=== PATIENT | male | born 1995 | race Caucasian/White ===

== ENCOUNTER 2017-01-23 19:08 | Emergency (ER) | payer MEDICAID ==
[2017-01-23] MEDS ORDERED: HYDROCODONE/ACETAMINOPHEN 5-325 MG TABLET PO ONE (20:17)
--- NOTE | 2017-01-23 20:18 | ER Document Report ---
HPI - HPI Patient complains to provider of: Sore throat, body aches Onset: Other - 2 days Onset/Duration: Persistent Quality of pain: Achy Pain Level: 3 Context: Patient presents complaining of sore throat, body aches, low back pain that started 2 days ago. Patient reports low-grade fever at home. Patient states he developed a mild cough today. Associated Symptoms: Body/muscle aches, Nonproductive cough, Fever, Rhinnorhea, Sore throat. denies: Vomiting Exacerbated by: Denies Relieved by: Denies Similar symptoms previously: Yes Recently seen / treated by doctor: No - ROS ROS below otherwise negative: Yes Systems Reviewed and Negative: Yes All other systems reviewed and negative - CONSTITUTIONAL Constitutional: REPORTS: Fever - EENT EENT: REPORTS: Sore Throat, Congestion - RESPIRATORY Respiratory: REPORTS: Coughing. DENIES: Trouble Breathing - GASTROINTESTINAL Gastrointestinal: DENIES: Abdominal Pain, Nausea, Patient vomiting - URINARY Urinary: DENIES: Dysuria - MUSCULOSKELETAL Musculoskeletal: REPORTS: Back Pain. DENIES: Extremity pain - DERM Skin Color: Normal Skin Problems: None Past Medical History - General Information source: Patient - Social History Smoking Status: Never Smoker Frequency of alcohol use: None Drug Abuse: None Occupation: retail Family History: Reviewed & Not Pertinent Patient has suicidal ideation: No Patient has homicidal ideation: No - Medical History Medical History: Negative Renal/ Medical History: Denies: Hx Peritoneal Dialysis Surgical Hx: Negative - Immunizations Immunizations up to date: Yes Hx Diphtheria, Pertussis, Tetanus Vaccination: Yes Vertical Provider Document - CONSTITUTIONAL Agree With Documented VS: Yes Exam Limitations: No Limitations General Appearance: WD/WN, No Apparent Distress - INFECTION CONTROL TRAVEL OUTSIDE OF THE [place] IN LAST 30 DAYS: No - HEENT HEENT: Atraumatic, Normocephalic, Pharyngeal Tenderness, Pharyngeal Erythema. negative: Pharyngeal Exudate, Tympanic Membrane Red, Tympanic Membrane Bulging - NECK Neck: Normal Inspection, Supple. negative: Lymphadenopathy-Left, Lymphadenopathy-Right - RESPIRATORY Respiratory: Breath Sounds Normal, No Respiratory Distress O2 Sat by Pulse Oximetry: 98 - CARDIOVASCULAR Cardiovascular: Regular Rate, Regular Rhythm, No Murmur - GI/ABDOMEN Gastrointestinal: Abdomen Soft, Abdomen Non-Tender, No Organomegaly - BACK Back: Abnormal Inspection - Lumbar paraspinal tenderness. negative: CVA Tenderness-Right, CVA Tenderness-Left - MUSCULOSKELETAL/EXTREMETIES Musculoskeletal/Extremeties: SKYLAR GE - NEURO Level of Consciousness: Awake, Alert, Appropriate Motor/Sensory: No Motor Deficit, No Sensory Deficit - DERM Integumentary: Warm, Dry, No Rash Course - Vital Signs Vital signs: Temp Pulse Resp BP Pulse Ox 98.6 F 98 H 16 118/66 98 01/23/17 19:22 01/23/17 19:22 01/23/17 19:22 01/23/17 19:22 01/23/17 19:22 - Laboratory Laboratory results interpreted by me: 01/23/17 21:07 Labs- Entire Visit 01/23/17 01/23/17 20:25 20:25 Urine Color YELLOW Urine Appearance SLIGHTLY-CLOUDY Urine pH 7.0 Ur Specific [place] 1.029 Urine Protein NEGATIVE Urine Glucose (UA) NEGATIVE Urine Ketones NEGATIVE Urine Blood NEGATIVE Urine Nitrite NEGATIVE Urine Bilirubin NEGATIVE Urine Urobilinogen NEGATIVE Ur Leukocyte Esterase NEGATIVE Urine WBC (Auto) 2 Urine RBC (Auto) 20 Urine Bacteria (Auto) TRACE Squamous Epi Cells Auto <1 Amorphous Sediment Auto TRACE Urine Mucus (Auto) MOD Urine Ascorbic Acid NEGATIVE Group A Strep Rapid NEGATIVE Discharge - Discharge Clinical Impression: Sore throat, Myalgia Condition: Stable Disposition: HOME, SELF-CARE Instructions: Oral Narcotic Medication ([facility]), Sore Throat ([facility]) Additional Instructions: Return immediately for any new or worsening symptoms Followup with your primary care provider, call tomorrow to make a followup appointment UPPER RESPIRATORY ILLNESS: You have a viral infection of the respiratory passages -- a "cold." This common infection causes nasal congestion, drainage, and often sore throat and cough. It is highly contagious. The disease usually lasts about 10 to 14 days. There is no "cure" for the viral infection -- it must run its course. If there is a complication, such as bacterial infection in the nose, sinuses, middle ear, or bronchial tubes, antibiotics may be required. The antibiotics won't affect the virus. Drink plenty of fluids. A humidifier may help. An expectorant medication or decongestant may make you more comfortable. Use acetaminophen or ibuprofen for fever or aches. See the doctor if fever persists over two days, if there is any significant worsening of your symptoms, or if you simply fail to improve as expected. USE OF ACETAMINOPHEN (Tylenol): Acetaminophen may be taken for pain relief or fever control. It's much safer than aspirin, offering a wider range of "safe" dosages. It is safe during . Some brand names are Tylenol, Panadol, Datril, Anacin 3, Tempra, and Liquiprin. Acetaminophen can be repeated every four hours. The following are maximum recommended dosages: >89 pounds or adults 650 mg to 900 mg Acetaminophen can be repeated every four hours. Maximum dose not to exceed 4000 mg a day. VIRAL SYNDROME: The physician has diagnosed a viral infection. Viruses not only cause "colds," but can cause many different symptoms including generalized aching, fever, headache, cough, diarrhea, nausea, vomiting, and fatigue. The treatment, for the most part, is simply relief of symptoms. This means that antibiotics are usually not given. Rest, fluids, pain medications and, occasionally, medication for the specific symptoms that are most bothersome will be prescribed. Use good handwashing to avoid passing the virus to others. Shared toys should be cleaned with disinfectant. Clean the toilets, sinks, and counter surfaces in bathrooms. Launder clothing in hot water. Contact the physician if you develop any new or unusual symptoms such as severe headache, stiff neck, high fever, chest pain, productive cough, or shortness of breath. You should be rechecked if you don't see marked improvement within seven to 10 days. FOLLOW-UP CARE: If you have been referred to a physician for follow-up care, call the physician s office for an appointment as you were instructed or within the next two days. If you experience worsening or a significant change in your symptoms, notify the physician immediately or return to the Emergency Department at any time for re-evaluation. Prescriptions: Hydrocodone/Acetaminophen [[place] 5-325 Tablet] 1 each PO Q4 PRN #15 tablet PRN Reason: Naproxen [Naprosyn 250 Nmg Tablet] 1 tab PO BID #14 tablet Forms: Return to Work [facility] - Follow up tomorrow
[2017-01-23 20:51] LABS: AMORPHOUS SEDIMENT,URINE TRACE /HPF; APPEARANCE,URINE SLIGHTLY-CLOUDY; BILIRUBIN,URINE NEGATIVE (NEGATIVE); GLUCOSE, URINE NEGATIVE (NEGATIVE); KETONES,URINE NEGATIVE (NEGATIVE); LEUKOCYTE ESTERASE,URINE NEGATIVE (NEGATIVE); NITRITE,URINE NEGATIVE (NEGATIVE); PROTEIN,URINE NEGATIVE (NEGATIVE); URINE SPECIFIC GRAVITY 1.029; UROBILINOGEN,URINE NEGATIVE mg/dL (<2.0)
[2017-01-23 21:51] VITALS: BP 110/63
== END 2017-01-23 21:51 | disposition home or self-care (01) ==
LOC: ER 19:08
DX: J02.9 Acute pharyngitis, unspecified (principal); M79.1 Myalgia; M54.5 Low back pain; R05 Cough; R50.9 Fever, unspecified; J34.89 Other specified disorders of nose and nasal sinuses
CPT/HCPCS: 81001; 87070; 87880; 99283

== ENCOUNTER 2017-09-06 21:56 | Emergency (ER) | payer SELFPAY ==
--- NOTE | 2017-09-07 00:37 | ER Document Report ---
ED General - General Chief Complaint: Toothache Stated Complaint: TOOTHACHE Time Seen by Provider: 09/06/17 23:24 Notes: Patient is a 21-year-old male without past medical history who presents with several days of progressively worsening throbbing, severe, aching pain to his left upper teeth as well as 2-3 days of left-sided facial swelling and erythema. Patient reports that the erythema and swelling has been progressively worse since onset. He denies any history of similar symptoms in the past. He reports that he was told that he had several significant dental infections but never followed up with a dentist to complete definitive management of this condition. He denies anything improves or worsens his symptoms. He has been trying ibuprofen without relief. He has not seen his primary doctor regarding today's concerns. He denies any fever, headache, neck pain, weakness, numbness, altered mental status. No facial trauma. TRAVEL OUTSIDE OF THE [place] IN LAST 30 DAYS: No - Related Data Allergies/Adverse Reactions: No Known Allergies Allergy (Verified 09/07/17 02:21) Past Medical History - General Information source: Patient - Social History Smoking Status: Never Smoker Frequency of alcohol use: None Drug Abuse: None Lives with: Parents Family History: Reviewed & Not Pertinent Renal/ Medical History: Denies: Hx Peritoneal Dialysis - Immunizations Immunizations up to date: Yes Hx Diphtheria, Pertussis, Tetanus Vaccination: Yes Review of Systems - Review of Systems Notes: Constitutional: Negative for fever. HENT: Positive for dental pain Eyes: Negative for visual changes. Cardiovascular: Negative for chest pain. Respiratory: Negative for shortness of breath. Gastrointestinal: Negative for abdominal pain, vomiting or diarrhea. Genitourinary: Negative for dysuria. Musculoskeletal: Negative for back pain. Skin: Positive for rash. Neurological: Negative for headaches, weakness or numbness. 10 point ROS negative except as marked above and in HPI. Physical Exam - Vital signs Vitals: Temp Pulse BP Pulse Ox 98.8 F 95 H 120/73 100 09/06/17 22:29 09/06/17 22:29 09/06/17 22:29 09/06/17 22:29 Interpretation: Normal Notes: PHYSICAL EXAMINATION: GENERAL: Well-appearing, well-nourished and in no acute distress. HEAD: Atraumatic, normocephalic. EYES: Pupils equal round and reactive to light, extraocular movements intact, sclera anicteric, conjunctiva are normal. ENT: nares patent, oropharynx clear without exudates. Several areas of dental caries in the left lateral incisor and molars. moist mucous membranes. NECK: Normal range of motion, supple without lymphadenopathy LUNGS: Breath sounds clear to auscultation bilaterally and equal. No wheezes rales or rhonchi. HEART: Regular rate and rhythm without murmurs ABDOMEN: Soft, nontender, normoactive bowel sounds. No guarding, no rebound. No masses appreciated. EXTREMITIES: Normal range of motion, no pitting or edema. No cyanosis. NEUROLOGICAL: No focal neurological deficits. Moves all extremities spontaneously and on command. PSYCH: Normal mood, normal affect. SKIN: Warm, Dry, normal turgor, the left side of the face has erythema over the maxillary sinus extending over to the left forehead and the left side of the nose. There is an area of swelling without fluctuance to the left maxillary sinus. Course - Re-evaluation Re-evalutation: 09/07/17 00:31 Patient presents with mild left-sided facial swelling and erythema in the setting of multiple severe dental caries on the left upper molars and and lateral incisor. There is an apparent cellulitis of the left side of his face over the maxillary sinus and forehead. Patient does not have any evidence of airway compromise. No difficulty swallowing. Vitals otherwise within normal limits. He is in no distress. I have emphasized with the patient at length the critical importance of follow-up with oral surgery for definitive management and the very real possibility of him having progressively worsening complications if he does not have the definitive treatment performed. 09/07/17 01:18 Discharge has been canceled as the patient has spiked a fever become tachycardic. The symptoms and signs were not present at time of initial presentation. Will therefore proceed with CT of the face and head to further evaluate for any evidence of a facial abscess in the context of not meeting sepsis criteria. Will also obtain labs and provide IV fluids, antipyretics, and IV antibiotics. 09/07/17 02:38 CT of the face does not show any significant fluid collection or anything to suggest a facial abscess. Edema is noted consistent with a cellulitis which is noted on examination. Will discharge on clindamycin for coverage of both dental infection as well as possible strep cellulitis. At this time will discharge with return precautions and follow-up recommendations. Verbal discharge instructions given a the bedside and opportunity for questions given. Medication warnings reviewed. Patient is in agreement with this plan and has verbalized understanding of return precautions and the need for primary care follow-up in the next 24-72 hours. - Vital Signs Vital signs: Temp Pulse Resp BP Pulse Ox 99 F 99 H 20 111/54 L 98 09/07/17 02:34 09/07/17 02:34 09/07/17 02:34 09/07/17 02:34 09/07/17 02:34 - Laboratory Result Diagrams: 09/07/17 01:43 09/07/17 01:43 Laboratory results interpreted by me: 09/07/17 01:43 WBC 11.8 H Lymphocytes % 11.6 L Absolute Neutrophils 8.9 H - Diagnostic Test Radiology reviewed: Image reviewed, Reports reviewed Radiology results interpreted by me: 09/07/17 02:39 CT head: No acute intracranial bleed Discharge - Discharge Clinical Impression: Dental infection, Facial swelling, Facial cellulitis Condition: Good Disposition: HOME, SELF-CARE Additional Instructions: You have been seen for dental pain. It is very important that you follow-up with a dentist for definitive care. Please take antibiotics that were prescribed as directed please return if you develop fever greater than 101, worsening swelling in your face, vomiting, difficulty breathing or swallowing, or any other symptoms that are concerning to you. For pain you should take ibuprofen 600 mg every 6 hours as needed. Prescriptions: Clindamycin HCl 300 mg PO TID #30 capsule Forms: Return to Work
[2017-09-07] MEDS ORDERED: AMOXICILLIN TR/POT CLAVULANATE 500-125 MG TAB PO ONE (00:40)
[2017-09-07] MEDS ORDERED: HYDROCODONE/ACETAMINOPHEN 5-325 MG (6 TAB/ER DISP) PO PRN (00:40)
[2017-09-07] MEDS ORDERED: NORMAL SALINE 1000 ML 1,000 ML IV ONE (01:17)
[2017-09-07] MEDS ORDERED: ACETAMINOPHEN 325 MG TABLET PO ONE (01:18)
[2017-09-07 01:58] LABS: ABSOLUTE BASOPHILS # (AUTO) 0.1 10^3/uL (0.0-0.2); ABSOLUTE LYMPHOCYTES (AUTO) 1.4 10^3/uL (0.5-4.7); ABSOLUTE MONOCYTES (AUTO) 1.4 10^3/uL (0.1-1.4); ABSOLUTE NEUT (AUTO) 8.9 10^3/uL (1.7-8.2); BASOPHILS % (AUTO) 0.4 % (0-2); EOSINOPHILS % (AUTO) 0.3 % (0-6); HEMATOCRIT 42.2 % (37.9-51.0); HEMOGLOBIN 14.4 g/dL (13.5-17.0); LYMPHOCYTES % (AUTO) 11.6 % (13-45); MEAN CORPUSCULAR HEMOGLOBIN 29.6 pg (27.0-33.4); MEAN CORPUSCULAR HGB CONC 34.1 g/dL (32.0-36.0); MEAN CORPUSCULAR VOLUME 87 fl (80-97); MONOCYTES % (AUTO) 11.9 % (3-13); PLATELET COUNT 235 10^3/uL (150-450); RED BLOOD COUNT 4.85 10^6/uL (4.35-5.55); RED CELL DISTRIBUTION WIDTH 12.9 % (11.5-14.0); SEGMENTED NEUTROPHILS % (AUTO) 75.8 % (42-78); TOTAL CELLS COUNTED % (AUTO) 100 %; WHITE BLOOD COUNT 11.8 10^3/uL (4.0-10.5)
[2017-09-07 02:14] LABS: ANION GAP 14 (5-19); BLOOD UREA NITROGEN 7 mg/dL (7-20); CALCIUM 9.8 mg/dL (8.4-10.2); CARBON DIOXIDE 25 mmol/L (22-30); CHLORIDE 104 mmol/L (98-107); GLUCOSE 95 mg/dL (75-110); POTASSIUM 4.1 mmol/L (3.6-5.0); SODIUM 142.7 mmol/L (137-145)
--- NOTE | 2017-09-07 02:18 | RADIOLOGY REPORT (SQ) ---
EXAM DESCRIPTION: CT HEAD WITHOUT CLINICAL HISTORY: facial swelling, fever COMPARISON: None available TECHNIQUE: Axial CT of the head obtained from the skull apex to the skull base without contrast. FINDINGS: No acute intracranial hemorrhage identified. No mass, mass effect, shift of the midline, abnormal extra-axial fluid collection or CT evidence of acute ischemic change identified. The ventricular system is unremarkable. No acute abnormalities of the supratentorial white matter, basal ganglia, cerebellum, or brainstem. The visualized paranasal sinuses and the mastoids are clear. No skull fracture identified. Visualized orbits and globes are unremarkable. Swelling in the left facial soft tissues. Please see facial bone CT for further details. DLP:1162.97 mGy-cm IMPRESSION: 1. No acute intracranial abnormality identified. This exam was performed according to our departmental dose-optimization program, which includes automated exposure control, adjustment of the mA and/or kV according to patient size and/or use of iterative reconstruction technique.
--- NOTE | 2017-09-07 02:22 | RADIOLOGY REPORT (SQ) ---
EXAM DESCRIPTION: CT FACIAL AREA WITHOUT CLINICAL HISTORY: facial swelling, fever COMPARISON: None available TECHNIQUE: Axial CT of the facial bones obtained without contrast. FINDINGS: Orbital floors and najera are intact. No fracture identified. Visualized globes and intraconal contents are unremarkable. Minimal mucosal thickening of the left maxillary sinus. The frontal sinuses, ethmoid air cells, sphenoid sinuses, and right maxillary sinuses are well aerated. Mastoid air cells are well aerated. No fracture of the maxillary antral najera. No nasal bone fracture. Nasal septum is midline. No fracture of the zygomatic processes or pterygoid plates. The visualized mandible is intact without evidence of fracture. No mandibular condylar dislocation. In the left maxillary region there is edema without well-circumscribed fluid collections definitely identified. No corresponding left maxillary hard palate or dental lucency to suggest cavity formation. No lymphadenopathy identified. Visualized submandibular and parotid glands are unremarkable. No abnormalities of the tongue base. DLP: 604.14 mGy-cm IMPRESSION: 1. Swelling in the left para maxillary subcutaneous soft tissues of the face. No well-circumscribed fluid collection identified. These findings could be seen with cellulitis. No corresponding dental abnormality at this location by CT criteria. This exam was performed according to our departmental dose-optimization program, which includes automated exposure control, adjustment of the mA and/or kV according to patient size and/or use of iterative reconstruction technique.
[2017-09-07 02:35] VITALS: BP 111/54
[2017-09-07] MEDS ORDERED: CEFTRIAXONE 1 GM/D5W RTU 1 GM/50 ML RTUPB IV ONE (02:38)
[2017-09-07] MEDS ORDERED: LIDOCAINE 1% INJ-PF (10 MG/ML) 30 ML SDV ONE (03:48)
== END 2017-09-07 02:54 | disposition home or self-care (01) ==
LOC: ER 21:56
DX: K04.7 Periapical abscess without sinus (principal); L03.211 Cellulitis of face; K02.9 Dental caries, unspecified
CPT/HCPCS: 99284; 96372; 96360; 36415; 85025; 80048; 70450; 70486; J3490; J7030; J0696

== ENCOUNTER 2018-01-23 09:22 | Emergency (ER) | payer SELFPAY ==
[2018-01-23] MEDS ORDERED: IPRATROPIUM/ALBUTEROL 0.5-2.5 MG/3 ML AMPUL NEB ONE (09:56)
[2018-01-23] MEDS ORDERED: ACETAMINOPHEN 325 MG TABLET PO ONE (09:56)
[2018-01-23] MEDS ORDERED: RINGERS SOLUTION,LACTATED 1,000 ML IV ONE ×2 (09:57→11:28)
--- NOTE | 2018-01-23 09:57 | ER Document Report ---
ED Medical Screen (RME) - General Chief Complaint: Abdominal Pain Stated Complaint: FEVER Time Seen by Provider: 01/23/18 09:52 Notes: RAPID MEDICAL EVALUATION DISCLOSURE I have seen this patient as part of a Rapid Medical Evaluation and, if applicable, placed any initially appropriate orders. The patient will be seen and fully evaluated, including a full history and physical exam, by a provider ( in Main ED or Fast Track) when a room becomes available. 22-year-old male here with complaints of sore throat cough ear pain body aches vomiting and fever to 102 Fahrenheit over the past few days. He reports he does not have a history of asthma. He has been using Tylenol/ibuprofen for the symptoms. No known sick contacts. EXAM Erythematous oropharynx with tonsillar swelling/exudates Mild end expiratory wheezes with normal aeration Tachycardic TRAVEL OUTSIDE OF THE [place] IN LAST 30 DAYS: No - Related Data Allergies/Adverse Reactions: No Known Allergies Allergy (Verified 09/07/17 02:21) Past Medical History Renal/ Medical History: Denies: Hx Peritoneal Dialysis - Immunizations Immunizations up to date: Yes Hx Diphtheria, Pertussis, Tetanus Vaccination: Yes Physical Exam - Vital signs Vitals: Temp Pulse Resp BP Pulse Ox 99.9 F 120 H 20 112/52 L 96 01/23/18 09:27 01/23/18 09:27 01/23/18 09:27 01/23/18 09:27 01/23/18 09:27 Course - Vital Signs Vital signs: Temp Pulse Resp BP Pulse Ox 99.9 F 120 H 20 112/52 L 96 01/23/18 09:27 01/23/18 09:27 01/23/18 09:27 01/23/18 09:27 01/23/18 09:27
--- NOTE | 2018-01-23 10:26 | RADIOLOGY REPORT (SQ) ---
EXAM DESCRIPTION: CHEST 2 VIEWS COMPLETED DATE/TIME: 01/23/2018 10:17 am REASON FOR STUDY: wheezing cough COMPARISON: 10/26/2014. EXAM PARAMETERS: NUMBER OF VIEWS: two views TECHNIQUE: Digital Frontal and Lateral radiographic views of the chest acquired. RADIATION DOSE: NA LIMITATIONS: none FINDINGS: LUNGS AND PLEURA: No opacities, masses or pneumothorax. No pleural effusion. MEDIASTINUM AND HILAR STRUCTURES: No masses or contour abnormalities. HEART AND VASCULAR STRUCTURES: Heart normal size. No evidence for failure. BONES: No acute findings. HARDWARE: None in the chest. OTHER: No other significant finding. IMPRESSION: NO ACUTE RADIOGRAPHIC FINDING IN THE CHEST. TECHNICAL DOCUMENTATION: JOB ID: [id number] [employer]- All Rights Reserved Reading location - IP/workstation name: [email or web address]
--- NOTE | 2018-01-23 11:36 | ER Document Report ---
ED General - General Chief Complaint: Abdominal Pain Stated Complaint: FEVER Time Seen by Provider: 01/23/18 09:52 Notes: Patient says he has been ill since Friday. Has had throat pain and his ears hurt when he swallows and a generalized headache. Vomited once yesterday. Says he is taking in fluids and making urine. No change in bowel movements. No urinary tract symptoms. Has had fever during these 3 days. No one else at home has been ill. No exposures to anyone elsewhere in who has been sick. Only minor cough. TRAVEL OUTSIDE OF THE [place] IN LAST 30 DAYS: No - Related Data Allergies/Adverse Reactions: No Known Allergies Allergy (Verified 09/07/17 02:21) Past Medical History - Social History Smoking Status: Current Every Day Smoker Chew tobacco use (# tins/day): No Frequency of alcohol use: Rare Drug Abuse: None Family History: Reviewed & Not Pertinent Patient has suicidal ideation: No Patient has homicidal ideation: No - Immunizations Immunizations up to date: Yes Hx Diphtheria, Pertussis, Tetanus Vaccination: Yes Review of Systems - Review of Systems Notes: REVIEW OF SYSTEMS: CONSTITUTIONAL : Fever as described in HPI.. EENT: Sore throat, see HPI. Denies eye, ear, nose or mouth pain or other symptoms. CARDIOVASCULAR: Denies chest pain. RESPIRATORY: Minimal cough, chest congestion, no shortness of breath. GASTROINTESTINAL: Denies abdominal pain or diarrhea. Once yesterday. GENITOURINARY: Denies difficulty or painful urinating, urinary frequency, blood in urine. MUSCULOSKELETAL: Denies back or neck pain. Denies joint pain or swelling. SKIN: Denies rash or skin lesions. NEUROLOGICAL: Denies LOC or altered mental status. Has a generalized headache. Denies sensory loss or motor deficits. ALL OTHER SYSTEMS REVIEWED AND NEGATIVE. Physical Exam - Vital signs Vitals: Temp Pulse Resp BP Pulse Ox 99.9 F 120 H 20 112/52 L 96 01/23/18 09:27 01/23/18 09:27 01/23/18 09:27 01/23/18 09:27 01/23/18 09:27 Interpretation: Tachycardic - Mild - Notes Notes: PHYSICAL EXAMINATION: GENERAL: Well-appearing, in no acute distress. Heart rate 110 by me at bedside HEAD: Atraumatic, normocephalic. EYES: Pupils equal round and reactive to light, extraocular movements intact. ENT: oropharynx erythematous, but without exudates. Moist mucous membranes. 2 tender nodes are palpable in the submandibular region bilaterally. Airway intact. No problems swallowing. Voice is not hoarse. NECK: Normal range of motion, supple. LUNGS: Breath sounds clear and equal bilaterally. Was given a nebulizer out in triage. I do not hear any wheezing. HEART: Regular rate and rhythm without murmurs. Mild tachycardia ABDOMEN: Soft, nontender. No guarding or rebound. No masses. BACK: No tenderness throughout entire back. EXTREMITIES: Normal range of motion without pain. NEUROLOGICAL: Normal speech, normal gait. Normal sensory, motor, and reflex exams. Awake, alert, and oriented x3. PSYCH: Normal mood, normal affect. SKIN: Warm, dry, no rashes. Course - Re-evaluation Re-evalutation: 01/23/18 11:36 Going to receive a couple of bags of IV fluid. Rapid strep was negative. - Vital Signs Vital signs: Temp Pulse Resp BP Pulse Ox 99.9 F 120 H 20 112/52 L 96 01/23/18 09:27 01/23/18 09:27 01/23/18 09:27 01/23/18 09:27 01/23/18 09:27 - Laboratory Result Diagrams: 01/23/18 10:30 01/23/18 10:30 Laboratory results interpreted by me: 01/23/18 01/23/18 10:30 10:30 WBC 15.6 H Seg Neutrophils % 78.6 H Lymphocytes % 7.0 L Monocytes % 14.3 H Absolute Neutrophils 12.3 H Absolute Monocytes 2.2 H Direct Bilirubin 0.5 H - Diagnostic Test Radiology results interpreted by sd: 01/23/18 11:37 Chest x-ray normal. Discharge - Discharge Clinical Impression: Fever, Sore throat, Leukocytosis Condition: Stable Disposition: HOME, SELF-CARE Additional Instructions: FEVER: Fever is the body's reaction to infection. Fever can also occur with illnesses that create fever-producing substances in the body. By itself, fever is not harmful. It helps the body fight invading germs. We are more concerned with: (1) What's causing the fever? (2) How can we keep you more comfortable until the fever goes away? Early in an illness, symptoms are often so vague that a diagnosis can't be made. If the doctor hasn't identified a clear cause for your fever, you will probably develop new symptoms within the next two days. Contact the doctor if you develop severe worsening headache, rash, chest pain, cough with yellow or green sputum, difficulty breathing, abdominal pain, or other new symptoms. There is no reason to treat a fever if you're comfortable. If the fever is causing aches, headache, and fatigue, you can treat it with ibuprofen (Advil , Nuprin, etc) or acetaminophen (Tylenol). Follow the directions on the bottle. Get plenty of liquids (three quarts per day). Rest. Physical work or sports will raise the temperature higher and make you feel much worse. Dress lightly. If you're chilling, this means the temperature is trying to go higher. Take ibuprofen or acetaminophen. When you feel sweaty and "feverish" the temperature is coming down. If the fever doesn't go away within two days or if you become more ill, call the doctor or return at once for re-examination. Leukocytosis Leukocytosis is an elevation or increase in the number of white blood cells. Nearly all leukocytosis is due to one type of white blood cell, the polymorphonuclear leukocyte (PMN). These conditions are more accurately referred to as neutrophilia. The most common and important cause of neutrophilia is infection, and most infections cause neutrophilia. The degree of elevation often indicates the severity of the infection. Tissue damage from other causes raises the white count for similar reasons. Strickland, infarction (cutting off the blood supply to a region of the body so that it dies), crush injuries, inflammatory diseases, poisonings, and severe diseases, like kidney failure and diabetic ketoacidosis, all cause neutrophilia. Counts almost as high occur in leukemoid (leukemia-like) reactions caused by infection and non-infectious inflammation. Drugs can also cause leukocytosis. Cortisone-like drugs prednisone, lithium , and NSAIDs are the most common offenders. Non-specific stresses also cause white blood cells to increase in the blood. Extensive testing of medical students reveals that neutrophilia accompanies every examination. Vigorous exercise and intense excitement also cause elevated white blood cell counts. Dehydration Dehydration can result from vomiting or diarrhea, fever, or decreased intake of fluids. If severe, hospitalization and intravenous fluids may be required. Most cases are treated at home with fluids by mouth. For the next 24 hours, drink lots of clear fluids. In mild cases, this can be soda pop or sports drinks. For more severe dehydration, the doctor may recommend special fluids such as Pedialyte or Lytren. Try to get three liters ( 3 quarts) of fluid per day. If vomiting occurs, continue to drink the fluids frequently (every 15 to 20 minutes), but in small amounts (one or two ounces). Depending on the type of dehydration, the doctor may prescribe antinausea medicine or potassium replacements. Call the doctor or return for re-examination if you become progressively weak, vomit repeatedly, or have other new symptoms. So far, your test results are all suggestive of a VIRAL SYNDROME: The physician has diagnosed a likely viral infection. Viruses not only cause "colds," but can cause many different symptoms including generalized aching, fever, headache, cough, diarrhea, nausea, vomiting, and fatigue. The treatment, for the most part, is simply relief of symptoms. This means that antibiotics are usually not given. Rest, fluids, pain medications and, occasionally, medication for the specific symptoms that are most bothersome will be prescribed. Use good handwashing to avoid passing the virus to others. Shared toys should be cleaned with disinfectant. Clean the toilets, sinks, and counter surfaces in bathrooms. Launder clothing in hot water. Contact the physician if you develop any new or unusual symptoms such as severe headache, stiff neck, high fever, chest pain, productive cough, or shortness of breath. You should be rechecked if you don't see marked improvement within seven to 10 days. Intravenous (IV) Fluids As part of your care today, you received intravenous (IV) fluids. IV fluids are administered to patients who are dehydrated or to those who have certain chemical (electrolyte) abnormalities that need correcting. USE OF ACETAMINOPHEN (Tylenol): Acetaminophen may be taken for pain relief or fever control. It's much safer than aspirin, offering a wider range of "safe" dosages. It is safe during . Some brand names are Tylenol, Panadol, Datril, Anacin 3, Tempra, and Liquiprin. Acetaminophen can be repeated every four hours. The following are maximum recommended dosages: WEIGHT Dose Drops Elixir Chewable( 80mg) (LBS.) drprs=droppers tsp=teaspoon >89 pounds or adults 650 mg to 900 mg Acetaminophen can be repeated every four hours. Maximum dose not to exceed 4000 mg a day. These maximum recommended dosages are slightly higher than the dosages written on the product container, but these dosages are very safe and below the toxic dosage for acetaminophen. Rocephin You have been given an injection of an antibiotic called Rocephin ( ceftriaxone). Sometimes the injection must be combined with antibiotic pills. For some infections, such as an uncomplicated ear infection, Rocephin provides all the antibiotic that's needed. The antibiotic will be in your body for about two days. For serious infections, we usually repeat doses of Rocephin daily. Side effects are very unusual following a shot. Women may develop vaginal yeast infections, and babies can get yeast (thrush) in the mouth following the use of antibiotics. Contact your physician if you have symptoms with this medication. Allergy to this antibiotic can result in hives, wheezing, faintness, or itching. If symptoms of allergy occur, call the doctor at once. While we await urine culture results, you have been given a days dosage of an antibiotic called Rocephin. FOLLOW-UP CARE: If you have been referred to a physician for follow-up care, call the physician s office for an appointment as you were instructed or within the next two days. If you experience worsening or a significant change in your symptoms, notify the physician immediately or return to the Emergency Department at any time for re-evaluation. Rest, drink plenty of fluids, Tylenol for fever and return if you have new or worsening symptoms. Forms: Return to Work
[2018-01-23 11:55] LABS: ABSOLUTE LYMPHOCYTES (AUTO) 1.1 10^3/uL (0.5-4.7); ABSOLUTE MONOCYTES (AUTO) 2.2 10^3/uL (0.1-1.4); ABSOLUTE NEUT (AUTO) 12.3 10^3/uL (1.7-8.2); BASOPHILS % (AUTO) 0.1 % (0-2); HEMATOCRIT 41.5 % (37.9-51.0); MEAN CORPUSCULAR HEMOGLOBIN 29.1 pg (27.0-33.4); MEAN CORPUSCULAR HGB CONC 33.7 g/dL (32.0-36.0); MEAN CORPUSCULAR VOLUME 86 fl (80-97); MONOCYTES % (AUTO) 14.3 % (3-13); PLATELET COUNT 214 10^3/uL (150-450); SEGMENTED NEUTROPHILS % (AUTO) 78.6 % (42-78); TOTAL CELLS COUNTED % (AUTO) 100 %; WHITE BLOOD COUNT 15.6 10^3/uL (4.0-10.5)
[2018-01-23 12:17] LABS: ALANINE AMINOTRANSFERASE 39 U/L (21-72); ALBUMIN 4.2 g/dL (3.5-5.0); ALKALINE PHOSPHATASE 91 U/L (38-126); ANION GAP 16 (5-19); ASPARTATE AMINO TRANSFERASE 23 U/L (17-59); BILIRUBIN,DIRECT 0.5 mg/dL (0.0-0.4); BILIRUBIN,TOTAL 0.8 mg/dL (0.2-1.3); BLOOD UREA NITROGEN 11 mg/dL (7-20); CALCIUM 9.2 mg/dL (8.4-10.2); CARBON DIOXIDE 23 mmol/L (22-30); CHLORIDE 100 mmol/L (98-107); GLUCOSE 107 mg/dL (75-110); POTASSIUM 4.1 mmol/L (3.6-5.0); SODIUM 138.8 mmol/L (137-145); TOTAL PROTEIN 7.3 g/dL (6.3-8.2)
[2018-01-23] MEDS ORDERED: CEFTRIAXONE INJ 1000 MG VIAL IV ONE (12:43)
[2018-01-23 14:21] VITALS: BP 110/75
== END 2018-01-23 14:26 | disposition home or self-care (01) ==
LOC: ER 09:22
DX: J02.9 Acute pharyngitis, unspecified (principal); R50.9 Fever, unspecified; D72.829 Elevated white blood cell count, unspecified; R51 Headache; R10.9 Unspecified abdominal pain
CPT/HCPCS: 94640; 99284; 96365; 96366; 96367; 36415; 87040; 87070; 87880; 85025; 87077; 86308; 80053; 71046; J0696; J7120; J7620

== ENCOUNTER 2018-03-14 16:07 | Emergency (ER) | payer SELFPAY ==
[2018-03-14] MEDS ORDERED: NORMAL SALINE 1000 ML 1,000 ML IV ONE ×4 (16:37→18:29)
[2018-03-14] MEDS ORDERED: KETOROLAC TROMETHAMINE INJ/PF 30 MG/1 ML SDV IV ONE (16:38)
[2018-03-14] MEDS ORDERED: DEXAMETHASONE SOD PHOS INJ 10 MG/1 ML VIAL IV ONE (16:38)
--- NOTE | 2018-03-14 16:42 | ER Document Report ---
ED Flu Like - General Mode of Arrival: Ambulatory Information source: Patient TRAVEL OUTSIDE OF THE [place] IN LAST 30 DAYS: No - HPI Onset: Other - Since March 10 Timing/Duration: Intermittent Quality of pain: Achy, Sharp, Other - Fatigue with a very sore throat Severity: Moderate Pain Level: 4 CO exposure: No Associated symptoms: Body/muscle aches, Chills, Fever, Sore throat Similar symptoms previously: Yes Recently seen / treated by doctor: No <KULWINDER VICTOR - Last Filed: 03/14/18 16:39> <ARMANI MACDONALD - Last Filed: 03/14/18 18:34> - General Chief Complaint: Flu Symptoms Stated Complaint: BODY PAIN/HEADACHE Time Seen by Provider: 03/14/18 16:21 Notes: 22-year-old male presents to ED for complaint of flulike symptoms. He states his fever has been over 102 and up to 105 off and on for the last several days since March 10. He states he has been very weak very tired febrile chills with a very sore throat. Patient is alert and oriented respirations regular and unlabored walks with a even steady gait. Patient does have a fever of 102.5 with a pulse of 110 blood pressure of 98/53 and respirations of 18 and a sat of 98. (KULWINDER VICTOR) - Related Data Allergies/Adverse Reactions: No Known Allergies Allergy (Verified 03/14/18 16:08) Past Medical History - General Information source: Patient - Social History Smoking Status: Never Smoker Cigarette use (# per day): No Chew tobacco use (# tins/day): No Smoking Education Provided: No Frequency of alcohol use: None Drug Abuse: None Occupation: Keyholder Lives with: Parents Family History: Reviewed & Not Pertinent Patient has suicidal ideation: No Patient has homicidal ideation: No - Past Medical History Cardiac Medical History: Reports: None Pulmonary Medical History: Reports: None EENT Medical History: Reports: None Neurological Medical History: Reports: None Endocrine Medical History: Reports: None Renal/ Medical History: Reports: None Malignancy Medical History: Reports None GI Medical History: Reports: None Musculoskeltal Medical History: Reports None Skin Medical History: Reports None Psychiatric Medical History: Reports: None - Immunizations Immunizations up to date: Yes Hx Diphtheria, Pertussis, Tetanus Vaccination: Yes <KULWINDER VICTOR - Last Filed: 03/14/18 16:39> - Vital signs Vitals: Temp Pulse Resp BP Pulse Ox 102.5 F H 110 H 18 98/53 L 98 03/14/18 16:26 03/14/18 16:26 03/14/18 16:26 03/14/18 16:26 03/14/18 16:26 Course <KULWINDER VICTOR - Last Filed: 03/14/18 16:39> - Laboratory Result Diagrams: 03/14/18 16:50 03/14/18 16:50 <ARMANI MACDONALD - Last Filed: 03/14/18 18:34> - Re-evaluation Re-evalutation: 03/14/18 18:31 Asked to see patient by [employer] due to his vital signs. Patient is a 22-year-old male, no past medical history, presents with fever and sore throat. On exam, he is slightly tachycardic, febrile and has exudates on his bilateral tonsils. He is nontoxic appearing. Chest x-ray and urinalysis do not show signs of infection. Patient has 3 Centor criteria, but his rapid Strep is negative. 2 months ago, he had similar symptoms with a negative rapid strep test that had a positive culture. With the symptoms, will treat him for strep pharyngitis. No signs of PATIENT CASE MANAGER, RPA or epiglottitis. He has absolutely no signs of meningitis at this time, especially no signs of bacterial meningitis. After IV fluids, Decadron and Toradol, the patient feels much better. Blood pressure improved and he is less tachycardic. He appears safe for outpatient treatment at this time. Instructed him to continue to stay hydrated and given very strict return precautions. (ARMANI MACDONALD) - Vital Signs Vital signs: Temp Pulse Resp BP Pulse Ox 100.5 F H 110 H 30 H 99/62 L 97 03/14/18 18:23 03/14/18 16:26 03/14/18 18:01 03/14/18 18:01 03/14/18 18:01 - Laboratory Laboratory results interpreted by me: 03/14/18 03/14/18 03/14/18 16:50 16:50 16:50 Lymphocytes % 7.6 L Monocytes % 14.6 H Absolute Monocytes 1.5 H Glucose 118 H Lactic Acid 2.2 H Creatine Kinase Urine Protein Urine Ketones Urine Blood Urine Urobilinogen 03/14/18 03/14/18 17:01 17:44 Lymphocytes % Monocytes % Absolute Monocytes Glucose Lactic Acid Creatine Kinase 46 L Urine Protein 30 H Urine Ketones 20 H Urine Blood MODERATE H Urine Urobilinogen 2.0 H
[2018-03-14 17:12] LABS: ABSOLUTE LYMPHOCYTES (AUTO) 0.8 10^3/uL (0.5-4.7); ABSOLUTE MONOCYTES (AUTO) 1.5 10^3/uL (0.1-1.4); BASOPHILS % (AUTO) 0.3 % (0-2); HEMATOCRIT 39.4 % (37.9-51.0); HEMOGLOBIN 13.6 g/dL (13.5-17.0); LYMPHOCYTES % (AUTO) 7.6 % (13-45); MEAN CORPUSCULAR HEMOGLOBIN 29.3 pg (27.0-33.4); MEAN CORPUSCULAR HGB CONC 34.6 g/dL (32.0-36.0); MEAN CORPUSCULAR VOLUME 85 fl (80-97); MONOCYTES % (AUTO) 14.6 % (3-13); PLATELET COUNT 193 10^3/uL (150-450); RED BLOOD COUNT 4.66 10^6/uL (4.35-5.55); RED CELL DISTRIBUTION WIDTH 13.7 % (11.5-14.0); SEGMENTED NEUTROPHILS % (AUTO) 77.5 % (42-78); TOTAL CELLS COUNTED % (AUTO) 100 %; WHITE BLOOD COUNT 10.3 10^3/uL (4.0-10.5)
[2018-03-14 17:26] LABS: APPEARANCE,URINE SLIGHTLY-CLOUDY; BILIRUBIN,URINE NEGATIVE (NEGATIVE); COLOR,URINE AMBER; GLUCOSE, URINE NEGATIVE (NEGATIVE); KETONES,URINE 20 mg/dL (NEGATIVE); LEUKOCYTE ESTERASE,URINE NEGATIVE (NEGATIVE); NITRITE,URINE NEGATIVE (NEGATIVE); PROTEIN,URINE 30 mg/dL (NEGATIVE); URINE SPECIFIC GRAVITY 1.031
--- NOTE | 2018-03-14 17:41 | RADIOLOGY REPORT (SQ) ---
EXAM DESCRIPTION: CHEST 2 VIEWS COMPLETED DATE/TIME: 03/14/2018 5:34 pm REASON FOR STUDY: cough fever COMPARISON: 01/23/2018 EXAM PARAMETERS: NUMBER OF VIEWS: two views TECHNIQUE: Digital Frontal and Lateral radiographic views of the chest acquired. RADIATION DOSE: NA LIMITATIONS: none FINDINGS: LUNGS AND PLEURA: No opacities, masses or pneumothorax. No pleural effusion. MEDIASTINUM AND HILAR STRUCTURES: No masses or contour abnormalities. HEART AND VASCULAR STRUCTURES: Heart normal size. No evidence for failure. BONES: No acute findings. HARDWARE: None in the chest. OTHER: No other significant finding. IMPRESSION: NO ACUTE RADIOGRAPHIC FINDING IN THE CHEST. TECHNICAL DOCUMENTATION: JOB ID: [id number] [employer]- All Rights Reserved Reading location - IP/workstation name: [email or web address]
[2018-03-14] MEDS ORDERED: ACETAMINOPHEN 325 MG TABLET PO ONE (17:48)
[2018-03-14 17:53] LABS: ALANINE AMINOTRANSFERASE 30 U/L (21-72); ALBUMIN 4.1 g/dL (3.5-5.0); ALKALINE PHOSPHATASE 87 U/L (38-126); ANION GAP 15 (5-19); ASPARTATE AMINO TRANSFERASE 22 U/L (17-59); BILIRUBIN,DIRECT 0.4 mg/dL (0.0-0.4); BILIRUBIN,TOTAL 0.6 mg/dL (0.2-1.3); BLOOD UREA NITROGEN 13 mg/dL (7-20); CALCIUM 8.9 mg/dL (8.4-10.2); CARBON DIOXIDE 26 mmol/L (22-30); CHLORIDE 100 mmol/L (98-107); GLUCOSE 118 mg/dL (75-110); POTASSIUM 4.1 mmol/L (3.6-5.0); SODIUM 140.7 mmol/L (137-145); TOTAL PROTEIN 7.1 g/dL (6.3-8.2)
[2018-03-14 18:17] LABS: B INFLUENZA AG NEGATIVE (NEGATIVE)
[2018-03-14 18:18] LABS: A TYPE INFLUENZA AG NEGATIVE (NEGATIVE)
[2018-03-14] MEDS ORDERED: PENICILLIN G BENZATHINE 1.2 MILLION UNIT/2 ML DISP.SYRIN IM ONE (18:28)
[2018-03-14 19:50] VITALS: BP 105/64
== END 2018-03-14 19:10 | disposition home or self-care (01) ==
LOC: ER 16:07
DX: J02.0 Streptococcal pharyngitis (principal)
CPT/HCPCS: 99283; 96372; 96361; 96374; 96375; 36415; 87040; 87070; 87880; 82550; 85025; 86308; 80053; 81001; 83605; 87804; 71046; J1885; J0561; J7030; J1100